=== PATIENT | male | born 1970 | race Caucasian/White ===

== ENCOUNTER 2017-04-14 09:31 | Emergency (ER) | payer BC ==
[2017-04-14] MEDS ORDERED: MORPHINE SULFATE 5 MG/ML PFS IVP ONE ×2 (09:32→10:42)
[2017-04-14] MEDS ORDERED: ASPIRIN 81 MG CHEWABLE TABLET PO ONE (09:32)
--- NOTE | 2017-04-14 09:39 | Emergency Department Record ---
History of Present Illness - General Stated Complaint: Chest pain Time Seen by Provider: 04/14/17 09:32 Source: Patient Mode of Arrival: Ambulatory Limitations: No limitations - History of Present Illness Initial Comments: 46 yo male presents with chest pain that is substernal and a heavy pressing feeling. It started about 15 minutes ago. The on set was with a normal walk. He feels shortness of breath. No radiation to arms or neck. He feels slight radiation to shoulder blades. No family history. He is a smoker. No other current medications. No recent health issues. MD Complaint: Chest pain -: Minutes(s) (15) Onset: During rest Pain Location: Substernal Pain Radiation: None Severity: Severe Quality: Heaviness, Tightness Consistency: Constant Improves With: Nothing Worsens With: Nothing Anginal Symptoms: Diaphoresis, Dyspnea Treatments Prior to Arrival: None - Related Data Home Medications Medication Instructions Recorded Confirmed Last Taken No Home Med [NO HOME MEDS] 04/14/17 04/14/17 Unknown Allergies Allergy/AdvReac Type Severity Reaction Status Date / Time No Known Drug Allergies Allergy Verified 04/14/17 09:59 Review of Systems Constitutional: Denies: Chills, Fever, Malaise, Weakness Eyes: Denies: Eye discharge ENT: Denies: Congestion, Throat pain Respiratory: Reports: Dyspnea. Denies: Cough, Hemoptysis, Stridor, Wheezes Cardiovascular: Reports: Chest pain. Denies: Palpitations, Syncope Endocrine: Denies: Fatigue Gastrointestinal: Denies: Abdominal pain, Diarrhea, Nausea, Vomiting Genitourinary: Denies: Discharge, Dysuria, Frequency, Hematuria Musculoskeletal: Denies: Arthralgia, Back pain, Neck pain Skin: Denies: Bruising, Change in color, Rash Neurological: Denies: Confusion, Headache, Numbness, Tingling, Weakness Psychiatric: Denies: Anxiety Hematological/Lymphatic: Denies: Blood Clots, Easy bleeding, Easy bruising, Swollen glands Physical Exam - General General Appearance: Alert, Oriented x3, Cooperative, Mild distress, Anxious Limitations: No limitations - Head Head exam: Normal inspection - Eye Eye exam: Normal appearance, PERRL. negative: Conjunctival injection, Periorbital swelling - ENT ENT exam: Normal exam, Mucous membranes moist, Normal external ear exam, Normal orophraynx, TM's normal bilaterally Ear exam: Normal external inspection. negative: External canal tenderness Nasal Exam: Normal inspection. negative: Discharge, Sinus tenderness Mouth exam: Normal external inspection, Tongue normal Teeth exam: Normal inspection. negative: Dental caries Throat exam: Normal inspection. negative: Tonsillar erythema, Tonsillar exudate - Neck Neck exam: Normal inspection, Full ROM. negative: Tenderness - Respiratory Respiratory exam: Normal lung sounds bilaterally. negative: Accessory muscle use, Chest wall tenderness, Respiratory distress, Rhonchi, Stridor, Wheezes - Cardiovascular Cardiovascular Exam: Regular rate, Normal rhythm, Normal heart sounds Peripheral Pulses: 2+: Radial (R), Radial (L) - GI/Abdominal GI/Abdominal exam: Soft. negative: Tenderness - Rectal Rectal exam: Deferred - exam: Deferred - Extremities Extremities exam: Normal inspection, Full ROM, Normal capillary refill. negative: Tenderness - Back Back exam: Reports: Normal inspection, Full ROM. Denies: CVA tenderness (R), CVA tenderness (L), Muscle spasm, Paraspinal tenderness, Rash noted, Tenderness , Vertebral tenderness - Neurological Neurological exam: Alert, Normal gait, Oriented X3 - Psychiatric Psychiatric exam: Anxious - Skin Skin exam: Dry, Intact, Normal color, Warm Course - Reevaluation(s) Reevaluation #1: EKG 09:33 NSR 80bpm, intervals normal, [place] normal No acute ST changes. NO old. 04/14/17 09:40 Reevaluation #2: CR down from 6 to 2/10 Repeat EKG performed EKG#2 09:43 sinus rhythm rate 78, intervals normal axis normal ST no acute changes, artifact persists in inferior lead. No ST depression. 04/14/17 09:53 the patient appears much more calm and less shaky. 3rd EKG ordered to attempt without artifact 04/14/17 10:10 EKG #3. 10:12 NSR, rate 68, intervals normal, axis normal, ST normal. Normal EKG. 04/14/17 10:20 The labs were reviewed. Troponin is normal at 0.012 04/14/17 10:21 The CXR was read as negative. 04/14/17 10:31 Normal D-dimer at 0.22 04/14/17 10:31 The patient request [facility] for consultation [facility] called at [place] Asif is personal coach. 04/14/17 10:32 Reevaluation #3: Dr Asif of [facility] accepts the patient 04/14/17 10:41 Reevaluation #4: The patient now states some pain in the back CTA chest ordered to evaluate prior to transfer waiting for bed. 04/14/17 10:56 04/14/17 12:[address] was reviewed No acute process. No PE, Aneurysm or Dissection The is mild CORONARY CALCIFICATION 90 ml of contrast used on the study per radiology The patient is 0/10 pain at this time. Given the symptoms with coronary calcifications heparin ordered as well. 04/14/17 12:27 Medical Decision Making - Lab Data Result diagrams: 04/14/17 09:36 04/14/17 09:36 Disposition Disposition: Transfer Clinical Impression: Chest pain Qualifiers: Chest pain type: unspecified Qualified Code(s): R07.9 - Chest pain, unspecified Disposition: Acute Care Hospital Transfer Transfer To: [facility] Reason For Transfer: Cardiology consultation Accepting Physician: Dr Asif Time Discussed w/Accepting Physician: 10:42 Condition: (2) Stable Time of Disposition: 10:35 Quality - Quality Measures Quality Measures: N/A - Blood Pressure Screening Does Patient Have Any of the Following: No Blood Pressure Classification: Hypertensive Reading Systolic Measurement: 149 Diastolic Measurement: 93 Screening for High Blood Pressure: < Pre-Hypertensive BP, F/U Documented > [ [id number]] Pre-Hypertensive Follow-up Interventions: Referral to alternative/primary care provider.
[2017-04-14 09:41] LABS: BASO % 0.6 % (0-6); EOS % 2.6 % (0-6); GRAN % 52.7 % (47-80); HEMATOCRIT 46.8 % (42.0-52.0); HEMOGLOBIN 16.3 gm/dl (14.0-18.0); LYMPH % 34.8 % (16-45); MEAN CELL VOLUME 86.5 fl (81-97); MEAN CORPUSCULAR HEMOGLOBIN 30.1 pg (27-33); MEAN CORPUSCULAR HGB CONC 34.8 g/dl (32-36); MEAN PLATELET VOLUME 9.2 fl (7.4-10.4); MONO % 9.3 % (0-9); PLATELET COUNT 253 K/uL (130-400); RED BLOOD COUNT 5.41 M/uL (4.40-5.70); RED CELL DISTRIBUTION WIDTH 13.3 % (11.5-14.5); WHITE BLOOD COUNT W/O DIFF 8.5 K/uL (4.2-12.2)
[2017-04-14] MEDS ORDERED: LORAZEPAM 2 MG/ML VIAL IV ONE (09:54)
[2017-04-14 09:59] LABS: ALB/GLOB RATIO 1.6 (1.1-1.8); ALBUMIN 4.8 gm/dL (3.5-5.0); ALKALINE PHOSPHATASE 96 U/L (38-126); ALT/SGPT 50 U/L (21-72); ANION GAP 12.2 (7-16); AST/SGOT 21 U/L (17-59); BILIRUBIN,TOTAL 0.64 mg/dL (0.2-1.3); BLOOD UREA NITROGEN 15 mg/dL (9-20); CARBON DIOXIDE 22.8 mmol/L (22-30); CREATINE PHOSPHOKINASE 93 U/L (55-170); CREATININE 0.9 mg/dL (0.66-1.25); EST GLOMERULAR FILTRATION RATE > 60 ml/min; GLUCOSE,RANDOM 87 mg/dL (70-110); TOTAL PROTEIN 7.8 gm/dL (6.3-8.2)
[2017-04-14] MEDS: NITROGLYCERIN 0.4MG SL TABLET #25 BTL SL PRN ×2 (09:59→10:05)
[2017-04-14 10:08] LABS: INR 0.91; PROTHROMBIN TIME (PATIENT) 9.8 SECONDS (9.5-12.1)
[2017-04-14] MEDS ORDERED: MAGNESIUM HYDROXIDE/AL HYDROX 30 ML, LIDOCAINE VISC 2% 200 MG PO ONE ×2 (10:10)
[2017-04-14 10:12] LABS: CKMB 0.4 ug/L (0-6)
[2017-04-14 10:19] LABS: TROPONIN I < 0.012 ng/mL (0.00-0.034)
[2017-04-14] MEDS ORDERED: NITROGLYCERIN/D5W 50 MG/250 ML ML IV SCH (10:45)
[2017-04-14] MEDS ORDERED: HEPARIN SODIUM 1000 UNIT/1 ML 10ML VIAL IVP ONE (12:04)
[2017-04-14] MEDS ORDERED: HEPARIN SODIUM/D5W 25,000 UNITS/500 ML BAG IV SCH (12:15)
--- NOTE | 2017-04-14 12:18 | RADIOLOGY REPORT ---
EXAM: AP CHEST HISTORY: SUDDEN ONSET DIFFICULTY BREATHING. CHEST PAIN, SMOKER. TECHNIQUE: AP view of the chest was obtained. Comparison: None. FINDINGS: The lungs are clear. The cardiac silhouette, diaphragm and osseous structures are unremarkable for age. IMPRESSION: NEGATIVE CHEST EXAMINATION. JOB NUMBER: [id number] MTDD
--- NOTE | 2017-04-14 13:16 | CT ANGIOGRAM REPORT ---
EXAM: CTA OF THE CHEST HISTORY: ACUTE GENERALIZED CHEST PAIN AND PRESSURE RELIEVED WITH IV NITROGLYCERIN. TECHNIQUE: Contiguous axial images from the thoracic inlet to the upper abdomen were obtained after the uneventful intravenous administration of 90 ml of Omnipaque 350. Sagittal and coronal two dimensional MIP as well as 3D/MIP reformatted images were obtained for better anatomic delineation. Comparison: Chest x-ray 04/14/17. FINDINGS: Mild dependent atelectatic change. The lungs are grossly clear with no consolidative change. The cardiac silhouette is mildly enlarged, but there is no pericardial effusion. Mild coronary artery calcification. No enlarged lymph nodes in the thorax. The pulmonary arteries are well opacified. No filling defect to suggest pulmonary embolism. No thoracic aortic dissection or aneurysm. The upper abdomen demonstrates unilocular cyst mid left kidney measuring 1.7 cm. No lytic or blastic osseous lesion. IMPRESSION: 1. NO ACUTE INTRATHORACIC PROCESS WITH NO PE OR THORACIC AORTIC DISSECTION. 2. MILD CARDIOMEGALY WITH MILD CORONARY ARTERY CALCIFICATION. JOB NUMBER: [id number] MTDD
== END 2017-04-14 13:04 | disposition short-term general hospital (02) ==
LOC: ER 09:31
DX: R07.2 Precordial pain (principal); R06.02 Shortness of breath; R61 Generalized hyperhidrosis
CPT/HCPCS: 71010; 71275; 80053; 82550; 82553; 83880; 84484; 85025; 85379; 85610; 85730; 93005; 93010; 96365; 96366; 96368; 96375; 99285